=== PATIENT | female | born 1990 | race Caucasian/White ===

== ENCOUNTER 2019-09-07 03:13 | Emergency (ER) | payer SELFPAY ==
[~2019-09-07] VITALS: Ht 154.9 cm; Wt 65.8 kg
[2019-09-07] MEDS ORDERED: ACETAMINOPHEN 325 MG TABLET PO ONE (03:30)
--- NOTE | 2019-09-07 03:31 | NUR ---
PATIENT CAME TO ER BED 2 C/O UPPER BACK PAIN SINCE THIS MORNING. PATIENT DENIES TRAUMA TO THE LOCATION OF PAIN. PATIENT STATES SHE IS 20 WEEKS . AAOX4. NO SOB. BREATHING EVENLY AND UNLABORED ON ROOM AIR. CONNECTED TO MONITOR.
[2019-09-07] MEDS ORDERED: ACETAMINOPHEN 325 MG TABLET ONE (03:40)
--- NOTE | 2019-09-07 03:49 | NUR ---
LEAD JAVASCRIPT ENGINEER AT BEDSIDE FOR LABS
[2019-09-07 03:50] LABS: BASOPHILS # (AUTO) 0.1 /CMM (0.0-0.2); BASOPHILS % (AUTO) 0.6 % (0.0-2.0); EOSINOPHILS % (AUTO) 1.5 % (0.0-6.0); HEMATOCRIT 41 % (33-45); LYMPHOCYTES # (AUTO) 2.8 /CMM (0.8-4.8); LYMPHOCYTES % (AUTO) 23.8 % (20.0-44.0); MEAN CORPUSCULAR HGB CONC 35 g/dl (31.0-36.0); MEAN CORPUSCULAR VOLUME 91 fL (82-100); MONOCYTES # (AUTO) 0.8 /CMM (0.1-1.30); MONOCYTES % (AUTO) 6.4 % (2.0-12.0); NEUTROPHILS # (AUTO) 8.1 /CMM (1.8-8.9); NEUTROPHILS % (AUTO) 67.7 % (43.0-81.0); PLATELET COUNT (AUTO) 160 /CMM (150-450); RED BLOOD CELL COUNT(AUTO) 4.45 MIL/uL (4.0-5.2); WHITE BLOOD COUNT (AUTO) 11.9 K/uL (4.3-11.0)
[2019-09-07 03:57] LABS: CARBON DIOXIDE 21 mmol/L (21-32); CHLORIDE 105 mmol/L (98-107); CREATININE 0.7 mg/dL (0.6-1.3); GLUCOSE 95 mg/dL (74-106); POTASSIUM 3.7 mmol/L (3.5-5.1); SODIUM SERUM 138 mmol/L (136-145); UREA NITROGEN, BLOOD 11 mg/dL (7-18)
--- NOTE | 2019-09-07 04:22 | NUR ---
PATIENT SIGNED WAIVER FOR CT SCREENING.
[2019-09-07] MEDS ORDERED: CT SWABBABLE VALVE TRANS SET 1 EA INFUS.SET MC ONE (04:29)
[2019-09-07] MEDS ORDERED: IV NS 0.9% 250 ML IV ONE (04:29)
[2019-09-07] MEDS ORDERED: IOHEXOL-350 100 ML VIAL IV ONE (04:29)
[2019-09-07 06:08] VITALS: BP 121/69
--- NOTE | 2019-09-07 06:08 | NUR ---
IV removed. Catheter intact and site benign. Pressure and 4x4 applied to site. No bleeding noted.
--- NOTE | 2019-09-07 06:08 | NUR ---
Patient discharged to home in stable condition. Written and verbal after care instructions given. Patient verbalizes understanding of instruction.
== END 2019-09-07 06:09 | disposition home or self-care (01) ==
LOC: ER 03:18
DX: O26.892 Other specified pregnancy related conditions, second trimester (principal); M54.5 Low back pain; Z3A.18 18 weeks gestation of pregnancy
CPT/HCPCS: 36415; 71275; 80048; 84484; 85025; 85378; 93005; 99285; J7050; Q9967